=== PATIENT | female | born 1995 | race Caucasian/White ===

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

== ENCOUNTER 2017-05-27 11:22 | Emergency (ER) | payer OTHER, MEDICAID ==
[2017-05-27] MEDS ORDERED: Sodium Chloride 0.9% 10 ML Syringe FLUSH PRN (11:40)
[2017-05-27] MEDS ORDERED: Lactated Ringers 1,000 ML IV SCH (11:45)
[2017-05-27 12:21] LABS: CHLORIDE,CL 106 mmol/L (98-107); SODIUM,NA 142 mmol/L (136-145)
[2017-05-27] MEDS ORDERED: Morphine 4 MG/ML Syringe IVPUSH ONE (12:45)
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
== END 2017-05-27 13:45 | disposition home or self-care (01) ==
LOC: VM.ED 11:22
DX: S20.219A Contusion of unspecified front wall of thorax, initial encounter (principal); S09.90XA Unspecified injury of head, initial encounter; F17.210 Nicotine dependence, cigarettes, uncomplicated; Z88.6 Allergy status to analgesic agent; Z88.8 Allergy status to other drugs, medicaments and biological substances; V49.9XXA Car occupant (driver) (passenger) injured in unspecified traffic accident, initial encounter
CPT/HCPCS: 70450; 71045; 71260; 72125; 74177; 80053; 81001; 81025; 85025; 85610; 96361; 96374; 99285; J2270

== ENCOUNTER 2017-05-29 17:26 | Emergency (ER) | payer OTHER, MEDICAID ==
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
[2017-05-29 19:11] VITALS: BP 134/74
== END 2017-05-29 18:00 | disposition home or self-care (01) ==
LOC: VM.ED 17:26
DX: F07.81 Postconcussional syndrome (principal); F17.210 Nicotine dependence, cigarettes, uncomplicated; Z88.8 Allergy status to other drugs, medicaments and biological substances
CPT/HCPCS: 71046; 99284

== ENCOUNTER 2018-08-30 19:17 | Emergency (ER) | payer OTHER ==
[2018-08-30 19:49] VITALS: BP 105/63; PULSE 91
--- NOTE | 2018-08-30 20:07 | EDM.PDOC ---
ED HPI GENERAL MEDICAL PROBLEM - General Chief Complaint: Fever Stated Complaint: FEVER Time Seen by Provider: 08/30/18 19:36 Source of Information: Reports: Patient History Limitations: Reports: No Limitations - History of Present Illness INITIAL COMMENTS - FREE TEXT/NARRATIVE: Patient reports fever at home of 99.2F. Afebrile here. Complaints of tiredness , lack of appetite. Denies chest pain, sob, abdominal pain, nausea, vomiting. Urinating and bowel movements normal. Does smoke cigarettes and marijuana. States her marijuana use is to help her appetite and states her [employer] is aware. Complains of throat pain. Fever of 102F last night. States she has not felt baby move in 2-3 days which she states is normal. Onset: Gradual Duration: Intermittent Quality: Reports: Sharp Severity: Mild - Related Data Allergies Allergy/AdvReac Type Severity Reaction Status Date / Time naproxen [From Aleve] Allergy Hives Verified 08/30/18 19:37 trazodone Allergy Hives Verified 08/30/18 19:37 Home Meds: Home Meds Escitalopram [Lexapro] 20 mg PO DAILY 08/30/18 [History] Past Medical History - Past Health History Medical/Surgical History: Denies Medical/Surgical History Social & Family History - Tobacco Use Smoking Status *Q: Current Every Day Smoker Years of Tobacco use: 9 Packs/Tins Daily: 1 - Recreational Drug Use Recreational Drug Use: Yes Recreational Drug Type: Reports: Marijuana/Hashish ED ROS ENT - Review of Systems Review Of Systems: See Below Constitutional: Reports: Fever, Fatigue HEENT: Reports: Throat Pain Respiratory: Reports: No Symptoms Cardiovascular: Reports: No Symptoms Endocrine: Reports: No Symptoms GI/Abdominal: Reports: No Symptoms : Reports: No Symptoms Musculoskeletal: Reports: No Symptoms Skin: Reports: No Symptoms Neurological: Reports: No Symptoms Psychiatric: Reports: No Symptoms Hematologic/Lymphatic: Reports: No Symptoms Immunologic: Reports: No Symptoms ED EXAM, ENT - Physical Exam Exam: See Below Exam Limited By: No Limitations General Appearance: Alert, WD/WN, No Apparent Distress Eye Exam: Bilateral Eye: EOMI, Normal Inspection, PERRL Ears: Normal TMs Nose: Normal Inspection, Normal Mucousa, No Blood Mouth/Throat: Normal Inspection, Normal Gums, Normal Lips, Normal Oropharynx, Normal Teeth Head: Atraumatic, Normocephalic Neck: Normal Inspection, Supple, Non-Tender, Full Range of Motion Respiratory/Chest: No Respiratory Distress, Lungs Clear, Normal Breath Sounds, No Accessory Muscle Use, Chest Non-Tender Cardiovascular: Normal Peripheral Pulses, Regular Rate, Rhythm, No Edema, No Gallop, No JVD, No Murmur, No Rub GI/Abdominal: Normal Bowel Sounds, Soft, Non-Tender, No Organomegaly, No Distention, No Abnormal Bruit, No Mass Back: Normal Inspection, Full Range of Motion Extremities: Normal Inspection, Normal Range of Motion, Non-Tender, No Pedal Edema, Normal Capillary Refill Neurological: Alert, Oriented, CN II-XII Intact, Normal Cognition, Normal Gait, Normal Reflexes, No Motor/Sensory Deficits Psychiatric: Flat Affect Skin: Warm, Dry, Intact, Normal Color, No Rash Lymphatic: No Adenopathy Course - Vital Signs Last Recorded V/S: Last Vital Signs Temp 36.5 C 08/30/18 19:38 Pulse 91 08/30/18 19:38 Resp 12 08/30/18 19:38 BP 105/63 08/30/18 19:38 Pulse Ox 95 08/30/18 19:38 - Orders/Labs/Meds Orders: Active Orders 24 hr Category Date Time Status STREP SCRN A RAPID W CULT CONF [RM] Stat Lab 08/30/18 19:43 Ordered - Re-Assessments/Exams Free Text/Narrative Re-Assessment/Exam: 08/30/18 20:04 tones heard at a rate of 150-160's. Departure - Departure Time of Disposition: 20:28 Disposition: Home, Self-Care 01 Condition: Good Clinical Impression: Pharyngitis - Discharge Information *PRESCRIPTION DRUG MONITORING PROGRAM REVIEWED*: Not Applicable *COPY OF PRESCRIPTION DRUG MONITORING REPORT IN PATIENT TOPHER: Not Applicable Instructions: Pharyngitis, [id number] Referrals: Christofer Treviño MD [Primary Care Provider] - Additional Instructions: Plan 1. Take tylenol for pain control. May take up to 1,000mg 4 times per day. Ibuprofen can increase your bleeding risk when . 2. You also should stop smoking and stop marijuana use. Smoking is linked to low weight, premature , psychotropic effects of marijuana also affect the fetus. 3. Rapid strep is negative. This will be sent for culture. If this is positive we will call you with a prescription for an antibiotic. 4. Stay well hydrated. 5. Follow up with your doctor for additional symptom management. 6. Please call if you have any additional questions or concerns. - Problem List & Annotations (1) Pharyngitis SNOMED Code(s): 233922718 Code(s): J02.9 - ACUTE PHARYNGITIS, UNSPECIFIED Status: Acute Priority: Low Current Visit: Yes Qualifiers: Pharyngitis/tonsillitis etiology: unspecified etiology Qualified Code(s): J02.9 - Acute pharyngitis, unspecified - Problem List Review Problem List Initiated/Reviewed/Updated: Yes - My Orders Last 24 Hours: My Active Orders 08/30/18 19:43 STREP SCRN A RAPID W CULT CONF [RM] Stat - Assessment/Plan Last 24 Hours: My Active Orders 08/30/18 19:43 STREP SCRN A RAPID W CULT CONF [RM] Stat Assessment:: pharyngitis Plan: Plan 1. Take tylenol for pain control. May take up to 1,000mg 4 times per day. Ibuprofen can increase your bleeding risk when . 2. You also should stop smoking and stop marijuana use. Smoking is linked to low weight, premature , psychotropic effects of marijuana also affect the fetus. 3. Rapid strep is negative. This will be sent for culture. If this is positive we will call you with a prescription for an antibiotic. 4. Stay well hydrated. 5. Follow up with your doctor for additional symptom management. 6. Please call if you have any additional questions or concerns.
== END 2018-08-30 20:28 | disposition home or self-care (01) ==
LOC: VM.ED 19:17
DX: J02.9 Acute pharyngitis, unspecified (principal); F17.210 Nicotine dependence, cigarettes, uncomplicated; Z79.899 Other long term (current) drug therapy; Z88.8 Allergy status to other drugs, medicaments and biological substances
CPT/HCPCS: 87081; 87880-QW; 99282; 99282-GF